=== PATIENT | male | born 1990 | race African-American/Black ===

== ENCOUNTER 2016-11-29 04:06 | Inpatient (IN) | payer MEDICARE, MEDICAID ==
[~2016-11-29] VITALS: Ht 172.7 cm; Wt 59.7 kg
[~2016-11-29 04:06] MED LIST: AMLO10TA80 PO; ASPI-1035 PO; Hydralazine Hcl PO; LABE100T PO; LON25 GT; LOSA50TA3 PO; Metoprolol Tartrate PO; OMEP20CA10 PO; PROC10TA PO; SEVE800T PO
[2016-11-29] MEDS ORDERED: MORPHINE SULFATE 4 MG/ML CPJ (NOT FOR IM USE) IV STA (04:33)
[2016-11-29] MEDS ORDERED: NITROGLYCERIN OINT 1GM/INCH UDPKT TD STA (04:33)
[2016-11-29] MEDS ORDERED: ONDANSETRON HCL 4MG/2ML VIAL IV STA (04:33)
[2016-11-29 04:51] LABS: BASOPHILS % 0.8 % (0.0-2.0); EOSINOPHILS % 2.6 % (0.0-5.0); HEMATOCRIT. 35.5 % (42.0-52.0); MEAN CORPUSCULAR HEMOGLOBIN 27.2 pg (28.0-32.0); MEAN CORPUSCULAR HGB CONC 31.1 g/dL (31.0-37.0); MEAN CORPUSCULAR VOLUME 87.5 fL (80.0-94.0); MEAN PLATELET VOLUME 9.5 fl (7.4-10.4); MONOCYTES % 5.8 % (2.0-8.0); NEUTROPHILS % 77.8 % (40.0-76.0); PLATELET 271 x1000/uL (130-400); RED BLOOD CELL COUNT 4.06 mill/uL (4.7-6.1); RED CELL DISTRIBUTION WIDTH 15.3 % (11.6-14.6); WHITE BLOOD COUNT 12.3 x1000/uL (4.5-11.0)
[2016-11-29 04:55] LABS: INR 1.1; PARTIAL THROMBOPLASTIN TIME 32.7 sec (24.0-34.0); PROTHROMBIN TIME 11.6 sec
[2016-11-29 05:24] LABS: ALANINE AMINOTRANSFERASE 15 IU/L (13-61); ALBUMIN 3.5 g/dL (3.4-5.0); ANION GAP 20; CALCIUM 8.3 mg/dL (8.5-10.1); CARBON DIOXIDE 27 mEq/L (21-32); CHLORIDE 98 mEq/L (98-107); INDEX HEMOLYSI 1 (1-3); INDEX ICTERIC 1 (1-4); INDEX LIPEMIC 1 (1-3); NT PRO B-TYPE NATRIURETIC PEP 27144 pg/mL (5-125); TROPONIN I 0.07 ng/mL (0.00-0.04); UREA NITROGEN BLOOD 57 mg/dL (7-21); eGFR 7 mL/min (>60)
[2016-11-29] MEDS ORDERED: DIPHENHYDRAMINE 50MG/ML VIAL IV PRN (07:45)
[2016-11-29] MEDS ORDERED: MAGNESIUM/ALUMINUM HYDROXIDE/SIMETHICONE 30ML UDC PO PRN (07:45)
[2016-11-29] MEDS ORDERED: ACETAMINOPHEN 650MG/20.3ML UDC GT PRN (07:45)
[2016-11-29] MEDS ORDERED: HYDROCODONE/ACETAMINOPHEN 5/325MG TABLET PO PRN (07:45)
[2016-11-29] MEDS ORDERED: DOCUSATE SODIUM 100MG CAPSULE PO PRN (07:45)
[2016-11-29] MEDS ORDERED: NA PHOS,M-B/NA PHOS,DI-BA ENEMA 118ML PR PRN (07:45)
[2016-11-29] MEDS ORDERED: ACETAMINOPHEN 325MG TABLET PO PRN (07:45)
[2016-11-29] MEDS ORDERED: ACETAMINOPHEN 650MG SUPP PR PRN (07:45)
[2016-11-29 08:36] VITALS: BP 221/145
[2016-11-29] MEDS: CLONIDINE 0.1MG TABLET PO PRN (09:28)
[2016-11-29] MEDS ORDERED: PROCHLORPERAZINE MALEATE 10MG TABLET PO PRN (09:45)
[2016-11-29] MEDS: ASPIRIN 81MG EC TABLET PO SCH (09:45)
[2016-11-29] MEDS: ONDANSETRON HCL 4MG/2ML VIAL IV PRN ×2 (10:00→22:28)
[2016-11-29] MEDS: MORPHINE SULFATE 2 MG/ML CPJ (NOT FOR IM USE) IV PRN ×2 (11:29→23:14)
[2016-11-29 12:00] VITALS: BP 208/142
[2016-11-29] MEDS ORDERED: MEDICATION NOT ON FORMULARY EA (Sevelamer Hcl (Renagel) 800 MG) PO SCH (13:00)
[2016-11-29] MEDS: SEVELAMER CARBONATE 800 MG TABLET PO SCH ×2 (13:10→16:55)
[2016-11-29] MEDS: HYDRALAZINE HCL 50MG TABLET PO SCH ×3 (14:00→21:29)
[2016-11-29] MEDS ORDERED: HYDRALAZINE HCL PO SCH (14:00)
[2016-11-29 16:00] VITALS: BP 206/124
[2016-11-29] MEDS: AMLODIPINE 10MG TABLET PO SCH (16:55)
[2016-11-29] MEDS: MINOXIDIL 2.5MG TABLET GT SCH ×2 (16:57→21:29)
[2016-11-29 20:00] VITALS: BP 183/119
[2016-11-29] MEDS ORDERED: METOPROLOL TARTRATE PO SCH (21:00)
[2016-11-29] MEDS ORDERED: MINOXIDIL 2.5MG TABLET GT SCH (21:00)
[2016-11-29] MEDS: METOPROLOL TARTRATE 25MG TABLET PO SCH (21:29)
[2016-11-29] MEDS: LABETALOL HCL 100MG TABLET PO SCH (21:29)
[2016-11-29] MEDS: GUAIFENESIN 200MG/10ML SUGAR FREE UDC PO PRN (22:27)
[2016-11-30] VITALS: BP 210/125
[2016-11-30] MEDS: CLONIDINE 0.1MG TABLET PO PRN ×3 (00:06→14:16)
[2016-11-30 04:00] VITALS: BP 200/126
[2016-11-30] MEDS: ONDANSETRON HCL 4MG/2ML VIAL IV PRN (05:39)
[2016-11-30] MEDS: GUAIFENESIN 200MG/10ML SUGAR FREE UDC PO PRN (05:39)
[2016-11-30] MEDS: HYDRALAZINE HCL 50MG TABLET PO SCH ×2 (05:39→14:16)
[2016-11-30 07:26] LABS: ALBUMIN 3.5 g/dL (3.4-5.0); ANION GAP 18; CALCIUM 8.6 mg/dL (8.5-10.1); CARBON DIOXIDE 28 mEq/L (21-32); CHLORIDE 94 mEq/L (98-107); INDEX HEMOLYSI 1 (1-3); INDEX ICTERIC 1 (1-4); INDEX LIPEMIC 1 (1-3); UREA NITROGEN BLOOD 44 mg/dL (7-21)
[2016-11-30 07:31] LABS: ALANINE AMINOTRANSFERASE 10 IU/L (13-61); HDL CHOLESTEROL 94 mg/dL (40-59); LDL CHOLESTEROL 97 mg/dL (5-100); TRIGLYCERIDE 106 mg/dL (0-150); eGFR 8 mL/min (>60)
[2016-11-30] MEDS ORDERED: OMEPRAZOLE 20MG CAPSULE EXTENDED RELEASE PO SCH (07:40)
[2016-11-30 07:45] LABS: BASOPHILS % 1.7 % (0.0-2.0); EOSINOPHILS % 5.1 % (0.0-5.0); HEMOGLOBIN. 11.7 g/dL (14.0-18.0); LYMPHOCYTES % 21.3 % (20.0-50.0); MEAN CORPUSCULAR HEMOGLOBIN 27.4 pg (28.0-32.0); MEAN CORPUSCULAR HGB CONC 31.8 g/dL (31.0-37.0); MEAN CORPUSCULAR VOLUME 86.3 fL (80.0-94.0); MEAN PLATELET VOLUME 10.2 fl (7.4-10.4); MONOCYTES % 6.4 % (2.0-8.0); NEUTROPHILS % 65.5 % (40.0-76.0); PLATELET 265 x1000/uL (130-400); RED BLOOD CELL COUNT 4.29 mill/uL (4.7-6.1); RED CELL DISTRIBUTION WIDTH 15.2 % (11.6-14.6); WHITE BLOOD COUNT 10.9 x1000/uL (4.5-11.0)
[2016-11-30 08:00] VITALS: BP 184/112
[2016-11-30] MEDS: LABETALOL HCL 100MG TABLET PO SCH (08:59)
[2016-11-30] MEDS: METOPROLOL TARTRATE 25MG TABLET PO SCH (08:59)
[2016-11-30] MEDS: MINOXIDIL 2.5MG TABLET GT SCH (09:00)
[2016-11-30] MEDS ORDERED: AMLODIPINE 10MG TABLET PO SCH (09:00)
[2016-11-30] MEDS: ASPIRIN 81MG EC TABLET PO SCH (09:00)
[2016-11-30] MEDS ORDERED: LOSARTAN POTASSIUM 50 MG TABLET PO SCH (09:00)
[2016-11-30] MEDS: SEVELAMER CARBONATE 800 MG TABLET PO SCH ×3 (09:00→14:16)
[2016-11-30] MEDS: AMLODIPINE 10MG TABLET PO SCH (09:00)
[2016-11-30 11:46] VITALS: BP 184/112
[2016-11-30 12:00] VITALS: BP 177/117
[2016-11-30 17:56] LABS: T4 FREE 0.99 ng/dL (0.76-1.46)
[2016-11-30 17:57] LABS: CREATINE KINASE MB FRACTION 2.1 ng/mL (0.5-3.6); TROPONIN I 0.05 ng/mL (0.00-0.04)
[2016-11-30 17:59] LABS: THYROID STIMULATING HORMONE 1.7 uIU/mL (0.36-3.74)
[2016-11-30] MEDS ORDERED: MINOXIDIL 2.5MG TABLET PO SCH (22:00)
== END 2016-11-30 17:50 | disposition home or self-care (01) | DRG 291 ==
LOC: ER 04:06 → 7WST 05:14
PROVIDERS: ADMIT Family Medicine; ATTEND Family Medicine
PROC: 5A1D60Z (ICD-10-PCS; principal; 2016-11-29)
DX: I13.2 Hypertensive heart and chronic kidney disease with heart failure and with stage 5 chronic kidney disease, or end stage renal disease (principal); I50.33 Acute on chronic diastolic (congestive) heart failure; N18.6 End stage renal disease; D63.1 Anemia in chronic kidney disease; F12.90 Cannabis use, unspecified, uncomplicated; I25.2 Old myocardial infarction; Z82.49 Family history of ischemic heart disease and other diseases of the circulatory system; Z91.19 Patient's noncompliance with other medical treatment and regimen; Z99.2 Dependence on renal dialysis; Z79.82 Long term (current) use of aspirin; Z79.899 Other long term (current) drug therapy
CPT/HCPCS: 36415; 71010; 80053; 80061; 82550; 82553; 83036; 83880; 84439; 84443; 84484; 85025; 85379; 85610; 85730; 93005; 96374; 96375; 99285; J2270; J2405

== ENCOUNTER 2016-12-14 22:51 | Emergency (ER) | payer MEDICARE, MEDICAID ==
[~2016-12-14] VITALS: Ht 172.7 cm; Wt 102.0 kg
[~2016-12-14 22:51] MED LIST changes: -LON25 GT; +MINO2.5T19 GT
[2016-12-14] MEDS ORDERED: MORPHINE SULFATE 4 MG/ML CPJ (NOT FOR IM USE) IV STA (23:42)
[2016-12-14] MEDS ORDERED: ONDANSETRON HCL 4MG/2ML VIAL IV STA (23:42)
[2016-12-15 00:28] LABS: HEMATOCRIT. 34.8 % (42.0-52.0); HEMOGLOBIN. 10.9 g/dL (14.0-18.0); MEAN CORPUSCULAR HEMOGLOBIN 27.3 pg (28.0-32.0); MEAN CORPUSCULAR HGB CONC 31.3 g/dL (31.0-37.0); MEAN CORPUSCULAR VOLUME 87.1 fL (80.0-94.0); PLATELET 254 x1000/uL (130-400); RED BLOOD CELL COUNT 3.99 mill/uL (4.7-6.1); RED CELL DISTRIBUTION WIDTH 15.3 % (11.6-14.6); WHITE BLOOD COUNT 9.8 x1000/uL (4.5-11.0)
[2016-12-15 00:30] LABS: DIFFERENTIAL COMMENT 1
[2016-12-15 00:42] LABS: CALCIUM 8.8 mg/dL (8.5-10.1); TROPONIN I 0.08 ng/mL (0.00-0.04)
[2016-12-15 00:48] LABS: ANISOCYTOSIS 1+; PLATELET ESTIMATE NORMAL
[2016-12-15 00:50] LABS: HYPOCHROMASIA 1+
[2016-12-15] MEDS ORDERED: LABETALOL 5MG/ML SYR 20 MG/4 ML SYRINGE IV ONE (02:00)
[2016-12-15] MEDS ORDERED: DIPHENHYDRAMINE 50MG/ML VIAL IV ONE (02:15)
[2016-12-15 04:22] VITALS: BP 162/109
== END 2016-12-15 05:19 | disposition home or self-care (01) ==
LOC: ER 22:52
DX: R07.89 Other chest pain (principal); I11.0 Hypertensive heart disease with heart failure; I50.9 Heart failure, unspecified; Z99.2 Dependence on renal dialysis; Z79.82 Long term (current) use of aspirin
CPT/HCPCS: 36415; 71010; 80048; 84484; 85025; 93005; 96374; 96375; 99285; J1200; J2270; J2405; J3490